=== PATIENT | female | born 1935 | race Caucasian/White ===

== ENCOUNTER 2019-07-23 11:04 | Emergency (ER) | payer OTHER, MEDICARE ==
[~2019-07-23] VITALS: Ht 154.9 cm; Wt 72.6 kg
[2019-07-23] MEDS ORDERED: NORCO 5-325 TA1 EAC1 PO (11:26)
[2019-07-23] MEDS ORDERED: HALCION0.25 MG PO (11:27)
[2019-07-23] MEDS ORDERED: ZOLOFT50 M1 PO (11:27)
[2019-07-23] MEDS ORDERED: VITAMIN B-121000 MC2 PO (11:28)
[2019-07-23] MEDS ORDERED: VITAMIN D250000 UNIT PO (11:28)
[2019-07-23] MEDS ORDERED: CENTRUM ADULTS1 EACH PO (11:28)
[2019-07-23] MEDS ORDERED: LEVO-T25 MCG PO (11:29)
[2019-07-23 13:01] LABS: HEMATOCRIT 44.5 % (37.0-47.0); HEMOGLOBIN 14.8 gm/dL (12.0-15.0); MCH 30.2 pg (26.0-34.0); MCHC 33.3 g/dL (28.0-37.0); MCV 90.6 fL (80.0-100.0); RBC 4.91 mil/uL (4.20-5.00)
[2019-07-23 13:11] LABS: CALCIUM 9.7 mg/dL (8.5-10.1); CREATININE 0.9 mg/dL (0.6-1.0)
[2019-07-23 13:12] LABS: POTASSIUM 4.7 mmol/L (3.5-5.1)
[2019-07-23] MEDS ORDERED: SENNA PLUS TAB1 EACH PO (16:01)
[2019-07-23] MEDS ORDERED: NORCO 10-325 T1 EACH PO (16:01)
[2019-07-23 16:35] VITALS: BP 121/64
== END 2019-07-23 16:40 | disposition home or self-care (01) ==
LOC: ER 11:04
PROVIDERS: Physician Assistant
PROC: 0PSHXZZ Reposition Right Radius, External Approach (ICD-10-PCS; principal; 2019-07-23)
DX: S52.592A Other fractures of lower end of left radius, initial encounter for closed fracture (principal); S09.90XA Unspecified injury of head, initial encounter; M25.522 Pain in left elbow; M25.512 Pain in left shoulder; M25.552 Pain in left hip; M19.90 Unspecified osteoarthritis, unspecified site; Z88.2 Allergy status to sulfonamides; W01.0XXA Fall on same level from slipping, tripping and stumbling without subsequent striking against object, initial encounter; Y93.89 Activity, other specified; Y92.096 Garden or yard of other non-institutional residence as the place of occurrence of the external cause; Y99.8 Other external cause status